=== PATIENT | female | born 1955 | race Caucasian/White ===

== ENCOUNTER 2017-01-30 07:39 | Inpatient (IN) ==
[2017-01-30] MEDS ORDERED: *HR* Propofol 200 MG/20 ML VIAL IVP ONE ×2 (07:44→10:57)
[2017-01-30] MEDS ORDERED: *HR* Rocuronium Bromide 50 MG/5 ML VIAL ONE (07:44)
[2017-01-30] MEDS ORDERED: Lidocaine -MPF 2% 2 ML VIAL ONE (07:44)
[2017-01-30] MEDS ORDERED: Ondansetron 4 MG/2 ML VIAL ONE (07:44)
[2017-01-30] MEDS ORDERED: *HR* FentaNYL (PF) 100 MCG/2 ML VIAL ONE (07:44)
[2017-01-30] MEDS ORDERED: *HR* Succinylcholine 200 MG/10 ML VIAL IVP ONE (07:44)
[2017-01-30] MEDS ORDERED: *HR* Midazolam HCl 2 MG/2 ML VIAL ONE ×2 (07:44→08:33)
[2017-01-30] MEDS ORDERED: CeFAZolin Pre 2,000 MG/100 ML 2,000 MG/100 ML BAG IVPB ONE (08:05)
[2017-01-30] MEDS ORDERED: Lidocaine -MPF 1% 2 ML VIAL ID ONE (08:05)
[2017-01-30] MEDS ORDERED: Albuterol 2.5 MG/3 ML NEBULIZER IH ONE (08:22)
[2017-01-30] MEDS ORDERED: Albuterol 2.5 MG/3 ML NEBULIZER ONE (08:24)
--- NOTE | 2017-01-30 08:24 | Anesthesia Evaluation PreOp ---
Date of Encounter: 01/30/17 Time of Encounter: 08:18 - Past History Planned Operation: Open paraesphageal hernia - Flako Fundoplication Cardiac History: Hyperlipidemia CHEMIST BIOLOGICAL History: Other (Anxiety/Depression) Other Medical History: Other (Endometrial CA) : No Alcohol Use: none Drug use: marijuana Medications and Allergies Carvedilol [Coreg] 6.25 mg PO DAILY 09/24/15 [History] Cholecalciferol (Vitamin D3) [Vitamin D] 1 tab PO DAILY 09/24/15 [History] Citalopram Hydrobromide [Celexa] 40 mg PO DAILY 09/24/15 [History] Loratadine [Claritin] 10 mg PO DAILY 09/24/15 [History] Lovastatin [Mevacor] 20 mg PO HS 09/24/15 [History] Multivitamin [Multivitamins] 1 tab PO DAILY 09/24/15 [History] [place]-3/Dha/Epa/Fish Oil [Fish Oil 1,000 mg Softgel] 1 tab PO DAILY 09/24/15 [ History] Pantoprazole Sodium [Protonix] 40 mg PO DAILY 09/24/15 [History] Ramipril [Altace] 10 mg PO DAILY 09/24/15 [History] Aspirin 81 mg PO DAILY 10/01/16 [History] No Known Allergies Allergy (Verified 10/01/16 08:30) - Meds/Allergy Pre-op Review Medications Reviewed: Yes Allergies Reviewed: Yes Beta Blockers on Current Med List: No If Beta Blockers taken, Date/Time (Last Dose taken): 07:00 01/30/17 Anesthesia Results - Labs Laboratory Tests 09/29/15 01/14/17 09:42 11:53 WBC 4.8 Hgb 13.4 Hct 41.2 Plt Count 186 Sodium 140 Potassium 4.0 Chloride 106 Carbon Dioxide 24 BUN 11 Creatinine 0.81 - Imaging EKG: image reviewed (INCOMPLETE RIGHT BUNDLE BRANCH BLOCK INFERIOR MYOCARDIAL INFARCTION, PROBABLY OLD) Anesthesia Exam O2 Sat Height 1.65 m Height 1.65 m Height 1.65 m Weight 64.41 kg Weight 64.41 kg Weight 64.41 kg O2 Sat by Pulse Oximetry 97 Vital Signs Temp Pulse Resp BP Pulse Ox 98 F 66 16 154/99 97 01/30/17 07:53 01/30/17 07:53 01/30/17 07:53 01/30/17 07:53 08/17/17 07:53 Height: 5'5'' Weight: 180# NPO (# of Hours): > 8 hrs Pain Scale: 0 Pain Scale Used: Numeric (1 - 10) - HEENT Pupil (Motor): Pupils equal, EOMI Mallampati: III Teeth: Normal Oral Opening: Greater than 3 - CHEMIST BIOLOGICAL LOC: Oriented CHEMIST BIOLOGICAL Motor: Normal RUE, Normal LUE, Normal RLE, Normal LLE, Normal Face CHEMIST BIOLOGICAL Sensory: Normal: RUE, LUE, RLE, LLE, Face - Cardiac Rhythm: Regular Murmur: None JVD: No Carotid Bruit: No - Pulmonary Breath Sounds: bilateral Clear Respiratory Effort: Symmetrical Anesthesia Assess/Plan ASA Score: 2 Modified Alvaro Scale for Level of Consciousness: Cooperative, oriented, and tranquil Anesthetic Plan: General Autologous Blood: Yes Monitoring Plan: Standard Monitors Recovery Plan: PACU
[2017-01-30] MEDS: Ringers Solution, Lactated 1,000 ML IVC SCH ×2 (08:29→09:30)
--- NOTE | 2017-01-30 08:33 | History & Physical Report ---
Date of Encounter: 01/30/17 Time of Encounter: 08:30 24 Hour HP Update - Instructions Instructions: If the History and Physical is less than 30 days old and was completed prior to A.M. admission and or procedure and has NOT been updated on calendar day of procedure please complete this update prior to performing procedure. - Update Patient reports changes in Medical Condition: No Changes in examination, assessment, or condition: No Changes in Medication: No Preop tests/diagnostics Reviewed: Yes Surgery Remains Indicated: Yes Consent for Planned Operative Procedure(s) Verified: Yes - Pre-Operative Checklist Preoperative Checklist Indicated: Yes Prophylactic Antibiotic Ordered: Yes Home Medications Include Beta Gaby: Yes Beta Gaby Taken Today (Day of Surgery): Yes Beta Gaby Taken Yesterday (Day Prior to Surgery): Yes Is VTE Prophylaxis Indicated?: Yes
[2017-01-30] MEDS ORDERED: EPHEDrine 50 MG/ML VIAL ONE (09:07)
[2017-01-30] MEDS ORDERED: *HR* HYDROmorphone 2 MG/ML SYRINGE ONE (09:21)
[2017-01-30] MEDS ORDERED: *HR* Labetalol 20 MG/4 ML SYRINGE IVP PRN (09:45)
[2017-01-30] MEDS ORDERED: *HR* Promethazine 25 MG/ML VIAL IVP PRN (09:45)
--- NOTE | 2017-01-30 11:38 | Operative Note ---
Date of procedure: 01/30/17 Pre-op diagnosis: Paraesophageal hernia and gastric volvulus Post-op diagnosis: same Procedure: #1 repair of paraesophageal hiatal hernia. #2 Flako fundoplication. #3 reduction of gastric volvulus Anesthesia: MAGDA Surgeon: James Rosenbaum Estimated blood loss (cc): 150 Specimen: Hernia sac Condition: stable Disposition: PACU Procedure in Detail: After informed consent patient was taken to the major operative suite placed in supine position given adequate general endotracheal anesthesia. The abdomen was prepped and draped in sterile fashion utilizing ChloraPrep standard draping techniques. Timeout was taken patient was identified. I made a midline incision. There was no stomach in the abdomen. The gastric volvulus was reduced. I divided the triangular ligament and retracted the liver inferiorly and to the right. The hernia sac was divided anterior to the esophagus. I then resected the hernia sac from the chest. This was a tremendously difficult dissection took about 1 hour. The lesser omentum was divided with Harmonic scalpel. I identified the right princess of the diaphragm and the esophagus was surrounded with a Kolby drain. I divided the short gastric vessels with surgical clips and Harmonic scalpel. There were several folds of hernia sac in this area of the greater curvature making dissection very difficult. Once dissection was completed I was able to identify the left princess of the diaphragm. The esophagus was protected and identified with a lighted 56-[place] bougie. During dissection there I now retracted gastroesophageal junction to the left and repaired the hiatal hernia with 5 stitches of 2-0 Ethibond with pledgets. The cardia was brought behind the gastroesophageal junction and I performed Flako fundoplication with 3 stitches of 2-0 Ethibond with pledgets. 2 shoulder stitches were placed between the wrap in the diaphragm. This gave an excellent technical result. Blood loss was 150 mL's. The midline was closed with looped 0 PDS. The skin was closed with 2-0 Vicryl and skin sami.
[2017-01-30] MEDS: *HR* HYDROmorphone (PF) 1 MG/ML SYRINGE IVP PRN ×7 (11:40→19:26)
--- NOTE | 2017-01-30 12:30 | Anesthesia Evaluation Post Op ---
Date of Encounter: 01/30/17 Time of Encounter: 12:29 - Vital Signs Vital Signs: Last Vital Signs Temp 98.5 F 01/30/17 11:55 Pulse 63 01/30/17 12:15 Resp 14 01/30/17 12:15 BP 131/70 01/30/17 12:15 Pulse Ox 96 01/30/17 12:15 - Lungs Lungs: Clear Ascult./Percussion - Airway Airway: Non-obstructed - Cardiovascular Regular Rate - Mental Status Mental Status: Alert & Oriented, Answers Appropriately - Pain Pain Scale: 3 - Nausea Vomiting Nausea Vomiting: Not Present - Hydration Hydration: NPO - Discharge PostOp Status: Transfer Patient to floor
[2017-01-30] MEDS ORDERED: Ondansetron 4 MG/2 ML VIAL IVP PRN (13:03)
[2017-01-30] MEDS: 0.9 % Sodium Chloride 1,000 ML IVC SCH (13:43)
[2017-01-30] MEDS: *HR* Metoprolol 5 MG/5 ML VIAL IVP SCH ×2 (13:43→17:41)
[2017-01-30] MEDS: ceFAZolin 2,000 MG in D5% in Water 100 ML IVPB SCH (17:39)
[2017-01-30] MEDS: *HR* Heparin 5,000 UNIT/ML VIAL SQ SCH (17:40)
[2017-01-30] MEDS ORDERED: *HR* Heparin 5,000 UNIT/ML VIAL SQ SCH (18:00)
[2017-01-31] MEDS: *HR* HYDROmorphone (PF) 1 MG/ML SYRINGE IVP PRN ×7 (00:01→19:49)
[2017-01-31] MEDS: *HR* Metoprolol 5 MG/5 ML VIAL IVP SCH ×5 (00:02→23:26)
[2017-01-31] MEDS: ceFAZolin 2,000 MG in D5% in Water 100 ML IVPB SCH (00:04)
[2017-01-31] MEDS: 0.9 % Sodium Chloride 1,000 ML IVC SCH ×2 (03:17→16:51)
[2017-01-31] MEDS: *HR* Heparin 5,000 UNIT/ML VIAL SQ SCH ×2 (03:56→16:50)
[2017-01-31 06:13] LABS: Hematocrit 36.6 % (35.3-44.9); Hemoglobin 12.2 g/dL (11.5-15.4); Immature Granulocytes % 0.2 % (0-4); Immature Platelets 4.7 % (1.1-6.1); Lymphocytes % 10.1 %; Mean Corpuscular HGB Conc 33.3 g/dL (31.6-35.5); Mean Corpuscular Hemoglobin 29.2 pg (28.0-33.3); Mean Corpuscular Volume 87.6 fL (83.0-100.0); Neutrophils # 7.8 K/mcL (1.6-8.9); Platelet Count 146 K/mcL (140-400); Red Blood Count 4.18 M/mcL (3.82-4.97); Red Cell Distribution Width 13.2 % (11.5-14.5); Segmented Neutrophils % 79.7 %
[2017-01-31 06:27] LABS: BUN/Creatinine Ratio 14 (6-26); Blood Urea Nitrogen 10 mg/dL (7-20); Calcium 8.6 mg/dL (8.6-10.8); Carbon Dioxide 27 mEq/L (19-29); Chloride 109 mEq/L (98-109); Glucose 106 mg/dL (70-99); Osmolality,Calculated 297 (280-300); Potassium 3.7 mEq/L (3.5-4.5); Sodium 144 mEq/L (136-145); eGFR For African Americans > 60 (> 60); eGFR For Non-African Americans > 60 (> 60)
[2017-01-31] MEDS: Pantoprazole 40 MG VIAL IVP SCH (08:15)
--- NOTE | 2017-01-31 08:34 | General Surgery Progress Note ---
<NewbyOziel - Last Filed: 01/31/17 08:51> Date of Encounter: 01/31/17 Time of Encounter: 06:15 - Assessment and Plan (1) Status post Flako fundoplication Current Visit: Yes Status: Acute 61 yo F with history of HTN, hyperlipidemia, GERD, endometrial cancer and hysterectomy. Post-operative day #1 Flako fundoplication/ reduction of gastric volvulus with Dr. Rosenbaum. Patient appears to be recovering well. Denies any nausea, flatus, or bowel movement. -Continue NPO with ice chips for now. -Pain management with Dilaudid. -PPI for nausea and vomiting prophylaxis. -Continue monitoring with a.m. labs. (2) Hypertension Current Visit: No Status: Acute Continue Lopressor for SBP > 160 or HR > 130; hold if SBP < 100 or HR < 60 Qualifiers: Hypertension type: essential hypertension Qualified Code(s): I10 - Essential (primary) hypertension (3) DVT prophylaxis Current Visit: Yes Status: Acute Heparin 5000 units for DVT prophylaxis. Subjective Patient reports: voiding w/o difficulty, no flatus, no bowel movement, afebrile Objective Vital Signs - Last 8 Hours Temp Pulse Resp BP Pulse Ox 01/31/17 06:24 99.2 F 69 18 147/89 96 01/31/17 03:28 98.9 F 75 20 127/71 93 Intake and Output 01/30/17 01/31/17 01/31/17 23:59 07:59 15:59 Intake Total 200 / 200 1000 / 1000 Output Total 0 / 0 100 / 100 Balance 200 / 200 900 / 900 Intake: IV Fluids 200 / 200 1000 / 1000 0.9 % Sodium Chloride 1, 1000 / 1000 000 ML @ 75 mls/hr IVC . [id number] [facility] Rx#: [id number] Ancef 2,000 MG In 200 / 200 Dextrose 5% 100 ML @ 200 mls/hr IVPB Q8HR [facility] Rx#: [id number] Oral 0 / 0 Output: Urine 0 / 0 100 / 100 Other: Meal NPO Percent of Meal Consumed 0% # Voids 1 # Bowel Movements 0 Blood Glucose* 120 109 - General physical appearance well developed, well nourished, no distress - Eyes normal ocular movement - ENT atraumatic, normocephalic, CN 2-12 grossly intact - Neck Neck exam: trachea midline - Respiratory normal expansion, clear to auscultation - Cardiovascular Cardiovascular exam: Present: NR, irregular rhythm, murmurs - Abdomen Abdomen: Present: soft, tender (expected post-operative tenderness ). Absent: bowel sounds present - Incision Incision: Present: clean and dry, intact - Psychiatric oriented to time, oriented to person, oriented to place, speech is normal, memory intact - Labs 01/31/17 05:25 01/31/17 05:25 Diabetes panel 01/31/17 Range/Units 05:25 Sodium 144 (136-145) mEq/L Potassium 3.7 (3.5-4.5) mEq/L Chloride 109 (98-109) mEq/L Carbon Dioxide 27 (19-29) mEq/L BUN 10 (7-20) mg/dL Creatinine 0.74 (0.57-1.11) mg/dL Glucose 106 H (70-99) mg/dL Calcium 8.6 (8.6-10.8) mg/dL Calcium panel 01/31/17 Range/Units 05:25 Calcium 8.6 (8.6-10.8) mg/dL Pituitary panel 01/31/17 Range/Units 05:25 Sodium 144 (136-145) mEq/L Potassium 3.7 (3.5-4.5) mEq/L Chloride 109 (98-109) mEq/L Carbon Dioxide 27 (19-29) mEq/L BUN 10 (7-20) mg/dL Creatinine 0.74 (0.57-1.11) mg/dL Glucose 106 H (70-99) mg/dL Calcium 8.6 (8.6-10.8) mg/dL Adrenal panel 01/31/17 Range/Units 05:25 Sodium 144 (136-145) mEq/L Potassium 3.7 (3.5-4.5) mEq/L Chloride 109 (98-109) mEq/L Carbon Dioxide 27 (19-29) mEq/L BUN 10 (7-20) mg/dL Creatinine 0.74 (0.57-1.11) mg/dL Glucose 106 H (70-99) mg/dL Calcium 8.6 (8.6-10.8) mg/dL - VTE Documentation of Mechanical Device: Intermittent pneumatic compression device Consult Discharge Plan - Plan Referrals: James Rosenbaum MD [Partnered Physician] - 02/12/17 2:00 pm <James Rosenbaum - Last Filed: 01/31/17 17:33> Date of Encounter: 01/31/17 Objective Vital Signs - Last 8 Hours Temp Pulse Resp BP Pulse Ox 01/31/17 14:36 97.9 F 70 16 125/75 90 01/31/17 10:55 99.0 F 72 17 149/79 94 Intake and Output 01/31/17 01/31/17 01/31/17 07:59 15:59 23:59 Intake Total 1000 / 1000 0 / 0 1000 / 1000 Output Total 100 / 100 0 / 0 Balance 900 / 900 0 / 0 1000 / 1000 Intake: IV Fluids 1000 / 1000 1000 / 1000 0.9 % Sodium Chloride 1, 1000 / 1000 1000 / 1000 000 ML @ 75 mls/hr IVC . [id number] [facility] Rx#: [id number] Oral 0 / 0 0 / 0 Output: Urine 100 / 100 0 / 0 Other: Meal NPO NPO Percent of Meal Consumed 0% 0% # Bowel Movements 0 0 Blood Glucose* 109 125 107 - Labs 01/31/17 05:25 01/31/17 05:25 Diabetes panel 01/31/17 Range/Units 05:25 Sodium 144 (136-145) mEq/L Potassium 3.7 (3.5-4.5) mEq/L Chloride 109 (98-109) mEq/L Carbon Dioxide 27 (19-29) mEq/L BUN 10 (7-20) mg/dL Creatinine 0.74 (0.57-1.11) mg/dL Glucose 106 H (70-99) mg/dL Calcium 8.6 (8.6-10.8) mg/dL Calcium panel 01/31/17 Range/Units 05:25 Calcium 8.6 (8.6-10.8) mg/dL Pituitary panel 01/31/17 Range/Units 05:25 Sodium 144 (136-145) mEq/L Potassium 3.7 (3.5-4.5) mEq/L Chloride 109 (98-109) mEq/L Carbon Dioxide 27 (19-29) mEq/L BUN 10 (7-20) mg/dL Creatinine 0.74 (0.57-1.11) mg/dL Glucose 106 H (70-99) mg/dL Calcium 8.6 (8.6-10.8) mg/dL Adrenal panel 01/31/17 Range/Units 05:25 Sodium 144 (136-145) mEq/L Potassium 3.7 (3.5-4.5) mEq/L Chloride 109 (98-109) mEq/L Carbon Dioxide 27 (19-29) mEq/L BUN 10 (7-20) mg/dL Creatinine 0.74 (0.57-1.11) mg/dL Glucose 106 H (70-99) mg/dL Calcium 8.6 (8.6-10.8) mg/dL - Attending Attestation I examined this patient and my medical decision-making was reviewed with the Resident Physician. I agree with the documented findings, disposition and treatment plan as described except to the extent set forth below. The patient is seen in evaluated with the resident on after brooms. She is doing quite well after open reduction of gastric volvulus and repair of paraesophageal hernia with Flako fundoplication. Lung sounds are clear. I do hear bowel sounds. I think it is reasonable start her on volume restricted clear liquids. James Rosenbaum MD FACS
[2017-02-01] MEDS: *HR* HYDROmorphone (PF) 1 MG/ML SYRINGE IVP PRN ×5 (00:34→23:39)
[2017-02-01] MEDS: *HR* Metoprolol 5 MG/5 ML VIAL IVP SCH ×4 (05:19→20:16)
[2017-02-01] MEDS: 0.9 % Sodium Chloride 1,000 ML IVC SCH ×2 (05:19→20:21)
[2017-02-01] MEDS: *HR* Heparin 5,000 UNIT/ML VIAL SQ SCH ×2 (05:20→17:45)
[2017-02-01 05:59] LABS: Basophils % 0.2 %; Hematocrit 35.2 % (35.3-44.9); Hemoglobin 11.4 g/dL (11.5-15.4); Immature Granulocytes % 0.1 % (0-4); Mean Corpuscular HGB Conc 32.4 g/dL (31.6-35.5); Mean Corpuscular Hemoglobin 28.4 pg (28.0-33.3); Mean Corpuscular Volume 87.6 fL (83.0-100.0); Mean Platelet Volume 10.4 fL (9.4-12.4); Monocytes # 0.9 K/mcL (0.0-1.3); Neutrophils # 6.4 K/mcL (1.6-8.9); Platelet Count 119 K/mcL (140-400); Red Blood Count 4.02 M/mcL (3.82-4.97); Red Cell Distribution Width 13.2 % (11.5-14.5); Segmented Neutrophils % 76.7 %
[2017-02-01 06:17] LABS: BUN/Creatinine Ratio 14 (6-26); Blood Urea Nitrogen 8 mg/dL (7-20); Calcium 8.6 mg/dL (8.6-10.8); Carbon Dioxide 28 mEq/L (19-29); Chloride 107 mEq/L (98-109); Glucose 105 mg/dL (70-99); Osmolality,Calculated 289 (280-300); Potassium 3.5 mEq/L (3.5-4.5); Sodium 140 mEq/L (136-145); eGFR For African Americans > 60 (> 60); eGFR For Non-African Americans > 60 (> 60)
[2017-02-01] MEDS: Pantoprazole 40 MG VIAL IVP SCH (09:22)
--- NOTE | 2017-02-01 14:20 | General Surgery Progress Note ---
Date of Encounter: 02/01/17 Time of Encounter: 10:15 - Assessment and Plan (1) Status post Flako fundoplication Current Visit: Yes Status: Acute patient tolerating clears well prn pain control gi/dvt prophylaxis OOB to chair ok shower (2) Hypertension Current Visit: No Status: Chronic patient continues to be slightly hypertensive, will add hydralazine continue scheduled lopressor Qualifiers: Hypertension type: essential hypertension Qualified Code(s): I10 - Essential (primary) hypertension (3) DVT prophylaxis Current Visit: Yes Status: Acute heparin sq Subjective Patient reports: feels better, still having pain, pain is less, tolerating liquids well, flatus, no bowel movement Objective Vital Signs - Last 8 Hours Temp Pulse Resp BP Pulse Ox 02/01/17 12:27 98.2 F 77 17 166/92 95 Intake and Output 01/31/17 02/01/17 02/01/17 23:59 07:59 15:59 Intake Total 1000 / 1000 2270 / 2270 307 / 307 Output Total 0 / 0 600 / 600 300 / 300 Balance 1000 / 1000 1670 / 1670 7 / 7 Intake: IV Fluids 1000 / 1000 2200 / 2200 307 / 307 0.9 % Sodium Chloride 1, 1000 / 1000 1000 / 1000 307 / 307 000 ML @ 75 mls/hr IVC . [id number] [facility] Rx#: [id number] Oral 0 / 0 70 / 70 Output: Urine 0 / 0 600 / 600 300 / 300 Other: Meal NPO Percent of Meal Consumed 0% # Voids 1 Weight 83.007 kg Blood Glucose* 107 108 109 Patient Weight 02/01/17 23:59 Weight 83.007 kg - General physical appearance well nourished, no distress - Eyes PERRL, normal ocular movement - ENT normal mucosa, normocephalic - Neck Neck exam: trachea midline - Respiratory normal expansion, clear to auscultation - Cardiovascular Cardiovascular exam: Present: RRR - Abdomen Abdomen: Present: bowel sounds present, soft, tender (appropriate post op tenderness) - Incision Incision: Present: clean and dry, intact - Integumentary no rash, no growths - Neurologic CN 2-12 grossly intact - Musculoskeletal normal posture - Psychiatric oriented to time, oriented to person, oriented to place, memory intact - Labs 02/01/17 05:52 02/01/17 05:52 Short CBC 02/01/17 Range/Units 05:52 WBC 8.3 (4.3-11.1) K/mcL Hgb 11.4 L (11.5-15.4) g/dL Hct 35.2 L (35.3-44.9) % Plt Count 119 L (140-400) K/mcL Neutrophils # 6.4 (1.6-8.9) K/mcL BMP 02/01/17 Range/Units 05:52 Sodium 140 (136-145) mEq/L Potassium 3.5 (3.5-4.5) mEq/L Chloride 107 (98-109) mEq/L Carbon Dioxide 28 (19-29) mEq/L BUN 8 (7-20) mg/dL Creatinine 0.59 (0.57-1.11) mg/dL Glucose 105 H (70-99) mg/dL Calcium 8.6 (8.6-10.8) mg/dL Vital Signs Temp Pulse Resp BP Pulse Ox 02/01/17 12:27 98.2 F 77 17 166/92 95 02/01/17 04:38 98.5 F 74 18 158/79 95 02/01/17 01:06 163/95 02/01/17 00:09 99.1 F 78 22 94 01/31/17 19:08 97.5 F L 79 16 163/86 90 01/31/17 14:36 97.9 F 70 16 125/75 90 Intake and Output 01/31/17 02/01/17 02/01/17 23:59 07:59 15:59 Intake Total 1000 / 1000 2270 / 2270 307 / 307 Output Total 0 / 0 600 / 600 300 / 300 Balance 1000 / 1000 1670 / 1670 7 7 Intake: IV Fluids 1000 / 1000 2200 / 2200 307 / 307 0.9 % Sodium Chloride 1, 1000 / 1000 1000 / 1000 307 / 307 000 ML @ 75 mls/hr IVC . [id number] [facility] Rx#: [id number] Oral 0 / 0 70 / 70 Output: Urine 0 / 0 600 / 600 300 / 300 Other: Meal NPO Percent of Meal Consumed 0% # Voids 1 Weight 83.007 kg Blood Glucose* 107 108 109 Patient Weight 02/01/17 23:59 Weight 83.007 kg - VTE Documentation of Mechanical Device: Intermittent pneumatic compression device Consult Discharge Plan - Plan Referrals: James Rosenbaum MD [Partnered Physician] - 02/12/17 2:00 pm
[2017-02-02] MEDS: *HR* Metoprolol 5 MG/5 ML VIAL IVP SCH ×3 (04:19→08:48)
[2017-02-02] MEDS: *HR* Heparin 5,000 UNIT/ML VIAL SQ SCH (05:24)
[2017-02-02] MEDS: *HR* HYDROmorphone (PF) 1 MG/ML SYRINGE IVP PRN (05:52)
[2017-02-02 07:45] LABS: Basophils % 0.4 %; Eosinophils % 0.5 %; Hematocrit 34.1 % (35.3-44.9); Hemoglobin 11.4 g/dL (11.5-15.4); Immature Granulocytes % 0.8 % (0-4); Lymphocytes # 0.7 K/mcL (0.6-4.6); Lymphocytes % 9.3 %; Mean Corpuscular HGB Conc 33.4 g/dL (31.6-35.5); Mean Corpuscular Hemoglobin 29.2 pg (28.0-33.3); Mean Corpuscular Volume 87.2 fL (83.0-100.0); Mean Platelet Volume 11.4 fL (9.4-12.4); Monocytes # 0.7 K/mcL (0.0-1.3); Monocytes % 9.1 %; Neutrophils # 6.1 K/mcL (1.6-8.9); Platelet Count 121 K/mcL (140-400); Red Blood Count 3.91 M/mcL (3.82-4.97); Red Cell Distribution Width 13.1 % (11.5-14.5); Segmented Neutrophils % 79.9 %
[2017-02-02 07:56] LABS: Alanine Aminotransferase 67 Units/L (0-55); Albumin 2.9 g/dL (3.5-5.0); Alkaline Phosphatase 50 Units/L (38-126); Aspartate Amino Transferase 52 Units/L (5-34); BUN/Creatinine Ratio 12 (6-26); Bilirubin,Total 0.7 mg/dL (0.2-1.2); Blood Urea Nitrogen 6 mg/dL (7-20); Calcium 8.5 mg/dL (8.6-10.8); Carbon Dioxide 25 mEq/L (19-29); Chloride 107 mEq/L (98-109); Globulin 2.8 g/dL (2.4-3.5); Glucose 90 mg/dL (70-99); Osmolality,Calculated 283 (280-300); Potassium 3.2 mEq/L (3.5-4.5); Sodium 138 mEq/L (136-145); Total Protein 5.7 g/dL (6.0-8.3); eGFR For African Americans > 60 (> 60); eGFR For Non-African Americans > 60 (> 60)
[2017-02-02] MEDS ORDERED: Potassium Chloride 40 MEQ, Lidocaine 1% 2 ML in D5% in Water 500 ML IVPB ONE (08:07)
[2017-02-02] MEDS: Pantoprazole 40 MG VIAL IVP SCH (08:37)
[2017-02-02] MEDS: 0.9 % Sodium Chloride 1,000 ML IVC SCH (08:41)
[2017-02-02] MEDS ORDERED: Loratadine 10 MG TABLET PO SCH (09:00)
[2017-02-02] MEDS ORDERED: Lisinopril 20 MG TABLET PO SCH (09:00)
[2017-02-02] MEDS ORDERED: Aspirin 81 MG TAB.CHEW PO SCH (09:00)
--- NOTE | 2017-02-02 09:42 | Discharge Summary ---
<Oziel Newby - Last Filed: 02/02/17 10:01> Date of Encounter: 02/02/17 Time of Encounter: 09:00 - Discharge Diagnosis (1) Status post Flako fundoplication Priority: Primary Status: Acute (2) Hypertension Priority: Secondary Status: Chronic Qualifiers: Hypertension type: essential hypertension Qualified Code(s): I10 - Essential (primary) hypertension - Discharge Medications Prescriptions: Docusate Sodium [Colace] 100 mg PO BID #30 capsule OxyCODONE/APAP 5/325 [Percocet 5/325 MG] 1 each PO BID #15 tablet Home Medications: Carvedilol [Coreg] 6.25 mg PO DAILY 09/24/15 [History] Cholecalciferol (Vitamin D3) [Vitamin D3] 1,000 unit PO DAILY 09/24/15 [History] Citalopram Hydrobromide [Celexa] 40 mg PO DAILY 09/24/15 [History] Loratadine [Claritin] 10 mg PO DAILY 09/24/15 [History] Lovastatin [Mevacor] 20 mg PO HS 09/24/15 [History] Multivitamin [Multivitamins] 1 tab PO DAILY 09/24/15 [History] [place]-3/Dha/Epa/Fish Oil [Fish Oil 1,000 mg Softgel] 1,000 mg PO DAILY 09/24/15 [History] Pantoprazole Sodium [Protonix] 40 mg PO DAILY 09/24/15 [History] Ramipril [Altace] 10 mg PO DAILY 09/24/15 [History] Aspirin 81 mg PO DAILY 10/01/16 [History] Ascorbic Acid [Vitamin C] 100 mg PO DAILY 01/30/17 [History] Calcium Carbonate [Calcium] 500 mg PO DAILY 01/30/17 [History] Ginkgo Biloba 40 mg PO DAILY 01/30/17 [History] Pyridoxine HCl [Vitamin B-6] 100 mg PO DAILY 01/30/17 [History] Docusate Sodium [Colace] 100 mg PO BID #30 capsule 02/02/17 [Rx] OxyCODONE/APAP 5/325 [Percocet 5/325 MG] 1 each PO BID #15 tablet 02/02/17 [Rx] Allergies/Adverse Reactions: 3 Allergy/AdvReac Type Severity Reaction Status Date / Time No Known Allergies Allergy Verified 10/01/16 08:30 General Surgery Exam Initial Vital Signs Temp Pulse Resp BP Pulse Ox 98 F 66 16 154/99 97 01/30/17 07:53 01/30/17 07:53 01/30/17 07:53 01/30/17 07:53 01/30/17 07:53 - General physical appearance well developed, well nourished, no distress - ENT atraumatic, normocephalic, CN 2-12 grossly intact - Neck trachea midline - Respiratory normal expansion, clear to auscultation - Cardiovascular Cardiovascular exam: Present: RRR, no murmurs/rubs/gallops - Abdomen Abdomen general surgery: Present: bowel sounds present, soft, tender (expected post-operative tenderness) - Incision Incision: Present: clean and dry, intact - Integumentary Integumentary general surgery: Present: warm and dry, no abnormal pigmentation - Neurologic Present: CN 2-12 grossly intact, normal coordination, normal sensation - Psychiatric Psychiatric general surgery: Present: appropriate, speech is normal, memory intact Date of admission: 01/30/17 13:23 Primary care physician: Kelli Porter CNP Discharging clinician: Jeanine Godoy Anticipated date of discharge: 02/02/17 - Patient Status Disposition: Home, Self-Care Condition: Good Functional capacity at discharge: independent ambulation Overall status at discharge: patient is back to baseline - Discharge Instructions Follow Up With: James Rosenbaum MD [Partnered Physician] - 02/12/17 2:00 pm Additional Instructions: Patient can shower today. Avoid lifting over 10 pounds or extraneous activities for [address] for now. Walk as often as you are able to. Use incentive spirometer to help with breathing. This is important to help prevent lung infections. Keep incision clean and dry. OK to wash skin around incision with mild soap and water. Incision can be open to air. Take pain medication as prescribed. Ok to take home meds. Call us or go to emergency room for sudden chest pain or trouble breathing, fever > 101F, pain or tenderness in the leg, incision separates, nausea and vomiting that won't go away. Follow-up with Dr. Rosenbaum 02/12/17 2pm follow the following diet: stay thin liquids (doesnt have to be clear) days 1-10 days 1-14 is full liquids: oatmeal, soup, jello days 15-20 is soft diet - Diet and Activity Activity: increase activity as tolerated Diet: advance to your usual diet - Hospital Course Hospital course: Ms. Pinedo is a 61 year old female with history of HTN, hyperlipidemia, GERD, endometrial cancer and hysterectomy. She is post operative day #3 Flako fundoplication/ reduction of gastric volvulus by Dr. Rosenbaum. The patient recovered well with appropriate advancement of diet and return of bowel function. She is tolerating PO diet well. Her pain is well managed with percocet. Patient is able to ambulate independently three times per day. Incision is clean and dry with 20 sami. Follow-up with Dr. Rosenbaum on 02/12/17 at 2pm and sami will be removed at that time. - Time Spent with Patient Total time spent providing and/or coordinating discharge services: Greater than 30 minutes Labs on day of discharge: Labs from last 24 hours 02/02/17 02/02/17 02/01/17 06:36 06:36 12:10 WBC 7.6 RBC 3.91 Hgb 11.4 L Hct 34.1 L MCV 87.2 MCH 29.2 MCHC 33.4 RDW 13.1 Plt Count 121 L MPV 11.4 Immature Gran % 0.8 Seg Neutrophils % 79.9 Lymphocytes % 9.3 Monocytes % 9.1 Eosinophils % 0.5 Basophils % 0.4 Neutrophils # 6.1 Lymphocytes # 0.7 Monocytes # 0.7 Eosinophils # 0.0 Basophils # 0.0 Sodium 138 Potassium 3.2 L Chloride 107 Carbon Dioxide 25 BUN 6 L Creatinine 0.51 L Est GFR ( Amer) > 60 Est GFR (Non-Af Amer) > 60 BUN/Creatinine Ratio 12 Glucose 90 POC Glucose 109 H Calculated Osmolality 283 Calcium 8.5 L Total Bilirubin 0.7 AST 52 H ALT 67 H Alkaline Phosphatase 50 Serum Total Protein 5.7 L Albumin 2.9 L Globulin 2.8 Albumin/Globulin Ratio 1.0 L - Impressions ITS Impressions Chest X-Ray 01/31/17 17:26 IMPRESSION: Ground-glass attenuation in the left lower lung zone suspected to represent chronic atelectasis in a patient with a large hiatal hernia. Developing pneumonitis considered less likely. D/ / Ovidio Castillo MD / Ovidio Castillo MD Interpreting Provider: Ovidio Castillo MD <Jeanine Godoy Jaylene - Last Filed: 02/02/17 11:38> Date of Encounter: 02/02/17 - Discharge Diagnosis (1) Status post Flako fundoplication Priority: Primary Status: Acute (2) Hypertension Priority: Secondary Status: Chronic Qualifiers: Hypertension type: essential hypertension Qualified Code(s): I10 - Essential (primary) hypertension (3) DVT prophylaxis Priority: Secondary Status: Acute General Surgery Exam Initial Vital Signs Temp Pulse Resp BP Pulse Ox 98 F 66 16 154/99 97 01/30/17 07:53 01/30/17 07:53 01/30/17 07:53 01/30/17 07:53 01/30/17 07:53 - General physical appearance well nourished, no distress - Eyes PERRL, normal ocular movement - ENT atraumatic, normocephalic - Neck trachea midline - Respiratory normal expansion, clear to auscultation - Cardiovascular Cardiovascular exam: Present: RRR, no murmurs/rubs/gallops - Abdomen Abdomen general surgery: Present: bowel sounds present, soft, tender - Integumentary Integumentary general surgery: Present: warm and dry, no abnormal pigmentation - Neurologic Present: CN 2-12 grossly intact, normal coordination, normal sensation - Musculoskeletal Present: normal gait, normal posture - Psychiatric Psychiatric general surgery: Present: A&Ox3, appropriate, speech is normal Date of admission: 01/30/17 13:23 Primary care physician: Kelli Porter CNP - Patient Status Functional capacity at discharge: independent ambulation Overall status at discharge: patient is progressing back to baseline - Diet and Activity Activity: increase activity as tolerated Diet: other - Hospital Course Hospital course: Ms. Pinedo is a 61 year old female - Time Spent with Patient Total time spent providing and/or coordinating discharge services: Labs on day of discharge: Labs from last 24 hours 02/02/17 02/02/17 02/01/17 06:36 06:36 12:10 WBC 7.6 RBC 3.91 Hgb 11.4 L Hct 34.1 L MCV 87.2 MCH 29.2 MCHC 33.4 RDW 13.1 Plt Count 121 L MPV 11.4 Immature Gran % 0.8 Seg Neutrophils % 79.9 Lymphocytes % 9.3 Monocytes % 9.1 Eosinophils % 0.5 Basophils % 0.4 Neutrophils # 6.1 Lymphocytes # 0.7 Monocytes # 0.7 Eosinophils # 0.0 Basophils # 0.0 Sodium 138 Potassium 3.2 L Chloride 107 Carbon Dioxide 25 BUN 6 L Creatinine 0.51 L Est GFR ( Amer) > 60 Est GFR (Non-Af Amer) > 60 BUN/Creatinine Ratio 12 Glucose 90 POC Glucose 109 H Calculated Osmolality 283 Calcium 8.5 L Total Bilirubin 0.7 AST 52 H ALT 67 H Alkaline Phosphatase 50 Serum Total Protein 5.7 L Albumin 2.9 L Globulin 2.8 Albumin/Globulin Ratio 1.0 L - Impressions ITS Impressions Chest X-Ray 01/31/17 17:26 IMPRESSION: Ground-glass attenuation in the left lower lung zone suspected to represent chronic atelectasis in a patient with a large hiatal hernia. Developing pneumonitis considered less likely. D/ / Ovidio Castillo MD / Ovidio Castillo MD Interpreting Provider: Ovidio Castillo MD - Attending Attestation I examined this patient and my medical decision-making was reviewed with the Resident Physician. I agree with the documented findings, disposition and treatment plan as described except to the extent set forth below.
[2017-02-02] MEDS ORDERED: *HR* OxyCODONE/APAP 5/325 TABLET PO SCH (12:00)
[2017-02-02 12:39] VITALS: BP 119/70
== END 2017-02-02 13:32 | disposition home or self-care (01) | DRG 328 ==
LOC: SAMDAY 07:39 → 3ANU 13:23
PROVIDERS: ADMIT Surgery; ATTEND Surgery